=== PATIENT | male | born 1940 | race Caucasian/White ===

== ENCOUNTER → 2018-09-09 | Outpatient (CLI) | payer MEDICARE ==
--- NOTE | 2018-09-09 09:34 | Diagnostic Imaging Report ---
MRI BRAIN WO HISTORY: Alzheimer's COMPARISON: None. TECHNIQUE: Sagittal T2, axial T2, multiplanar 3-D T1, axial T2/FLAIR, axial gradient echo (or susceptibility weighted), and axial diffusion weighted MR images of the brain were obtained without contrast. Motion artifacts obscure some details. DISCUSSION: Scalp/bone marrow: Unremarkable. Brain sulci: Mildly prominent. Ventricles: Mild compensatory dilatation. Extra-axial spaces: No masses or fluid collections. Parenchyma: Scattered T2/FLAIR hyperintense foci throughout the supratentorial white matter are likely chronic microvascular ischemic changes. Otherwise, no mass, hemorrhage, or acute vascular insults. Vessels: Normal flow voids in major arteries and veins. Sellar/Suprasellar region: No abnormalities. Craniocervical junction: No abnormalities. Incidental findings: Both ocular lenses are thinned. IMPRESSION: 1. No acute intracranial abnormalities. 2. Moderate supratentorial chronic microvascular ischemic change. 3. Mild generalized cerebral volume loss. Signed by: Dr. Masoud Warner M.D. on 09/09/2018 9:30 AM
== END ==
LOC: MRI 06:57
PROVIDERS: ATTEND Psychiatry & Neurology Clinical Neurophysiology
DX: G30.1 Alzheimer's disease with late onset (principal)
CPT/HCPCS: 70551

== ENCOUNTER 2019-03-27 15:00 | Outpatient (RCR) | payer MEDICARE ==
[2019-04-21] MEDS ORDERED: PRAMIPEXOLE DIHY1 MG PO (16:53)
[2019-04-21] MEDS ORDERED: ALLOPURINOL100 MG PO (16:53)
[2019-04-21] MEDS ORDERED: LEVOTHYROXINE75 MCG PO (16:53)
[2019-04-21] MEDS ORDERED: PROPAFENONE HC325 MG PO (16:53)
[2019-04-21] MEDS ORDERED: COUMADIN3 MG PO (16:53)
[2019-04-21] MEDS ORDERED: ARICEPT5 MG PO (16:53)
[2019-04-21] MEDS ORDERED: LISINOPRIL2.5 MG PO (16:53)
[2019-04-21] MEDS ORDERED: FUROSEMIDE40 MG PO (16:53)
[2019-04-21] MEDS ORDERED: ATORVASTATIN CA20 MG PO (16:53)
== END 2019-03-28 ==
LOC: PT 15:00
DX: E11.9 Type 2 diabetes mellitus without complications (principal); I25.10 Atherosclerotic heart disease of native coronary artery without angina pectoris; I10 Essential (primary) hypertension; I48.91 Unspecified atrial fibrillation